=== PATIENT | female | born 1970 | race American Indian/Alaskan Native ===

== ENCOUNTER 2020-12-13 18:16 | Emergency (ER) | payer SELFPAY ==
--- NOTE | 2020-12-13 19:04 | Event Note ---
ED Screening Note Date of service: 12/13/20 Time: 18:58 ED Screening Note: Patient was brought to the ER today via EMS with complaints of possible seizure after she made tea from amanita muscarine mushrooms. EMS report that patient friend called stating that patient had what looked like seizure activity. Patient reports that she made tea out of the amanita muscarine. She said she was hungry that why she drank it. She states that she has done Magic mushrooms before in the past but has never done the Amitiza muscarine before. When asked whether she does any other illicit drugs, patient denies. She also denies alcohol use. Patient states she currently just feels groggy and is awake and alert, she is oriented to place, but she does not know her date of , and she does not know what year it is. EMS report that patient had a blood pressure of 158/96, heart rate of 98, O2 sat on room air 400%, respiratory rate of 16, and a blood glucose of 131. This initial assessment/diagnostic orders/clinical plan/treatment(s) is/are subject to change based on patients health status, clinical progression and re- assessment by fellow clinical providers in the ED. Further treatment and workup at subsequent clinical providers discretion. Patient/guardian urged not to elope from the ED as their condition may be serious if not clinically assessed and managed. Initial orders include: Labs including UDS, salicylate level, acetaminophen level and EtOH
[2020-12-13 20:17] LABS: Basophils % (Auto) 0.7 % (0.0-1.8); Eosinophils % (Auto) 0.6 % (0.0-4.3); Hematocrit 38.4 % (30.3-42.9); Hemoglobin 12.8 gm/dl (10.1-14.3); Lymphocytes # (Auto) 1.4 K/mm3 (1.2-5.4); Lymphocytes % (Auto) 22.2 % (13.4-35.0); Mean Corpuscular HGB Conc 33 % (30-34); Mean Corpuscular Volume 81 fl (79-97); Monocytes # (Auto) 0.3 K/mm3 (0.0-0.8); Platelet Count 295 K/mm3 (140-440); Red Blood Count 4.74 M/mm3 (3.65-5.03); Red Cell Distribution Width 14.7 % (13.2-15.2)
[2020-12-13 20:36] LABS: Alanine Aminotransferase 23 units/L (7-56); Albumin 4.1 g/dL (3.9-5); Blood Urea Nitrogen 9 mg/dL (7-17); Calcium 9.3 mg/dL (8.4-10.2); Hemolysis Index 6
[2020-12-13 20:51] LABS: BUN/Creatinine Ratio 15
[2020-12-13 22:57] VITALS: BP 177/108
[2020-12-13 23:18] LABS: Hematocrit 38.7 % (30.3-42.9); Hemoglobin 12.9 gm/dl (10.1-14.3); Mean Corpuscular HGB Conc 33 % (30-34); Mean Corpuscular Volume 81 fl (79-97); Platelet Count 336 K/mm3 (140-440); Red Blood Count 4.77 M/mm3 (3.65-5.03); Red Cell Distribution Width 15.4 % (13.2-15.2)
[2020-12-13 23:37] LABS: Alanine Aminotransferase 25 units/L (7-56); Albumin 4.6 g/dL (3.9-5); Blood Urea Nitrogen 9 mg/dL (7-17); Calcium 9.8 mg/dL (8.4-10.2); Hemolysis Index 40
[2020-12-13 23:41] LABS: BUN/Creatinine Ratio 15
== END 2020-12-13 23:00 | disposition left against medical advice (07) ==
LOC: ED 18:16
DX: R56.9 Unspecified convulsions (principal); Z53.21 Procedure and treatment not carried out due to patient leaving prior to being seen by health care provider
CPT/HCPCS: 36415; 80053; 80320; 84443; 84703; 85025; 85027; G0480